=== PATIENT | male | born 1975 | race Caucasian/White ===

== ENCOUNTER → 2019-06-20 | Outpatient (CLI) | payer OTHER ==
[~2019-06-20] MED LIST: CHANTIX1 MG PO
== END ==
LOC: COL.LAB 12:47
DX: E87.1 Hypo-osmolality and hyponatremia (principal)

== ENCOUNTER 2019-12-29 09:47 | Outpatient (RCR) | payer OTHER | END 2020-03-28 | disposition home or self-care (01) | LOC: WSOH | DX: G44.321 Chronic post-traumatic headache, intractable (principal); F07.81 Postconcussional syndrome; E11.9 Type 2 diabetes mellitus without complications; F32.9 Major depressive disorder, single episode, unspecified; I10 Essential (primary) hypertension; K21.9 Gastro-esophageal reflux disease without esophagitis; J30.2 Other seasonal allergic rhinitis; Y99.0 Civilian activity done for income or pay; Z90.89 Acquired absence of other organs ==

== ENCOUNTER 2022-10-18 14:32 | Outpatient (RCR) | payer OTHER | END 2022-10-20 | disposition home or self-care (01) | LOC: WSST | DX: R41.89 Other symptoms and signs involving cognitive functions and awareness (principal); R46.89 Other symptoms and signs involving appearance and behavior; Z87.820 Personal history of traumatic brain injury ==

== ENCOUNTER 2022-11-14 14:30 | Outpatient (RCR) | payer OTHER | END 2022-11-19 | disposition home or self-care (01) | LOC: WSST | DX: R41.89 Other symptoms and signs involving cognitive functions and awareness (principal); R46.89 Other symptoms and signs involving appearance and behavior; S06.0XAS Concussion with loss of consciousness status unknown, sequela ==

== ENCOUNTER 2022-12-19 14:30 | Outpatient (RCR) | payer OTHER | END 2022-12-20 | disposition home or self-care (01) | LOC: WSST | DX: R41.89 Other symptoms and signs involving cognitive functions and awareness (principal); R46.89 Other symptoms and signs involving appearance and behavior; Z87.820 Personal history of traumatic brain injury ==